=== PATIENT | female | born 1945 | race Two or more races ===

== ENCOUNTER 2024-10-24 10:31 | Emergency (ER) | payer OTHER ==
[~2024-10-24] VITALS: Ht 157.5 cm; Wt 81.6 kg
[2024-10-24 12:27] LABS: BASO % 0.1 % (0.1-1.2); EOS # 0.00 (0.04-0.54); EOS % 0.0 % (0.7-7.0); LYMPH # 0.64 (1.18-3.74); LYMPH % 9.2 % (19.3-53.1); MEAN PLATELET VOLUME 9.60 fl (9.4-12.4); MONO # 0.38 (0.24-0.82); MONO % 5.4 % (4.7-12.5); NEUT # 5.94 (1.56-6.13); NEUT % 85.0 % (34.0-71.1); RED CELL DISTRIBUTION WIDTH 12.0 % (11.6-14.4)
[2024-10-24 13:03] LABS: COVID-19 AG POSITIVE (NEGATIVE)
[2024-10-24 13:36] LABS: URINE APPEARANCE Clear; URINE BILIRRUBIN Negative (NEGATIVE); URINE BLOOD NHT; URINE COLOR Yellow; URINE KETONE 15 (NEGATIVE); URINE LEUKOCYTE Negative; URINE NITRATE Negative; URINE PROTEIN 30 (NEGATIVE); URINE UROBILINOGEN 1.0 E.U./dl
[2024-10-24 13:37] LABS: URINE BACTERIA 22.7 uL (0.0-1933); URINE EPITHELIAL CELLS 1.6 uL (0.0-38.8); URINE RBC 56.6 uL (0.0-20.8); URINE WBC 3.6 uL (0.0-23.2)
[2024-10-24 14:54] LABS: URINE CAST 0.29 uL (0.0-1.40); URINE GLUCOSE 100 MG/DL (NEGATIVE)
== END 2024-10-24 15:24 | disposition home or self-care (01) ==
LOC: ER 10:31
PROVIDERS: Emergency Medicine
DX: U07.1 COVID-19 (principal); J40 Bronchitis, not specified as acute or chronic; Z87.01 Personal history of pneumonia (recurrent); I10 Essential (primary) hypertension; E11.9 Type 2 diabetes mellitus without complications